=== PATIENT | male | born 2000 | race Hispanic/Latino ===

== ENCOUNTER 2024-12-14 23:34 | Emergency (ER) | payer OTHER ==
[~2024-12-14] VITALS: Ht 172.7 cm; Wt 95.5 kg
[2024-12-15 00:34] LABS: CK-MB VALUE MASS < 1.0 NG/ML (<3.6)
[2024-12-15 00:36] LABS: ALBUMIN 4.6 G/DL (3.2-5.2); ALKALINE PHOSPHATASE 104 U/L (40-129); ALT/SGPT 204 U/L (7.0-40); AST/SGOT 92 U/L (<34); BILIRUBIN,DIRECT < 0.1 MG/DL (<0.4); BILIRUBIN,TOTAL 0.2 MG/DL (0.3-1.2); BLOOD UREA NITROGEN 10 MG/DL (9-23); CALCIUM LEVEL 9.3 MG/DL (8.5-10.1); CARBON DIOXIDE LEVEL 19 MMOL/L (20-31); CHLORIDE LEVEL 111 MMOL/L (98-107); CREATININE FOR GFR 0.69 MG/DL (0.70-1.30); GLOMERULAR FILTRATION RATE > 60.0 (>60); GLUCOSE, FASTING 115 MG/DL (60-100); POTASSIUM SERUM 4.6 MMOL/L (3.5-5.1); SODIUM LEVEL 145 MMOL/L (136-145); TOTAL PROTEIN 8.3 G/DL (5.7-8.2)
[2024-12-15 00:42] LABS: CPK CREATINE PHOSPHOKINASE 227 U/L (46-171); MB/CK RELATIVE INDEX 0.44 (< OR =4)
[2024-12-15 01:05] LABS: BASO # 0.1 10^3/uL (0.0-0.2); BASO % 0.9 % (0.0-1.0); EOS # 0.1 10^3/uL (0.0-0.5); EOS % 1.4 % (0.0-3.0); HEMATOCRIT 47.7 % (42.0-52.0); HEMOGLOBIN 16.2 g/dl (13.5-17.5); LYMPH # 2.4 10^3/uL (1.5-5.0); LYMPH % 42.4 % (24.0-44.0); MEAN CORPUSCULAR HEMOGLOBIN 31.6 pg (27.0-33.0); MEAN CORPUSCULAR VOLUME 93.2 fl (80.0-96.0); MONO # 0.5 10^3/uL (0.0-0.8); MONO % 9.2 % (2.0-8.0); NEUTROPHILS # 2.6 10^3/uL (1.5-8.5); NEUTROPHILS % 44.4 % (36.0-66.0); PLATELET COUNT, AUTOMATED 278 10^3/uL (150-450); RED BLOOD COUNT 5.12 10^6/uL (4.30-6.10); WHITE BLOOD COUNT 5.8 10^3/uL (4.0-10.0)
[2024-12-15 02:41] LABS: CK-MB VALUE MASS < 1.0 NG/ML (<3.6)
[2024-12-15 02:42] LABS: CPK CREATINE PHOSPHOKINASE 208 U/L (46-171); MB/CK RELATIVE INDEX 0.48 (< OR =4)
[2024-12-15 05:15] VITALS: BP 121/69; TEMP 98; O2SAT 98
== END 2024-12-15 05:48 | disposition home or self-care (01) ==
LOC: EDBD 23:34 → M ED 23:34
DX: F10.129 Alcohol abuse with intoxication, unspecified (principal)